=== PATIENT | male | born 1955 | race Caucasian/White ===

== ENCOUNTER → 2016-04-01 | Outpatient (CLI) | payer BC ==
--- NOTE | 2016-04-01 08:43 | RAD ---
EXAM DESCRIPTION: XR SHOULDER 2 OR MORE VIEWS CLINICAL HISTORY: SHOULDER PAIN COMPARISON: None Available. TECHNIQUE: Two views. FINDINGS: There is good internal and external rotation. There is no fracture or bone lesion. There are no significant degenerative changes observed. IMPRESSION: Normalleft shoulder Electronically signed by: Shakeel Ward MD 04/01/2016 08:41
== END ==
LOC: RAD 07:41
PROVIDERS: ATTEND Orthopaedic Surgery
DX: M25.512 Pain in left shoulder (principal)

== ENCOUNTER → 2016-11-02 | Outpatient (CLI) | payer BC ==
--- NOTE | 2016-11-03 13:27 | MRI ---
Study: MRI of the Left Shoulder. 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 Comparison: Radiographs April 01, 2016. FINDINGS: Mild AC joint osteoarthritis. Mild type III acromion with mild lateral downsloping. Trace subacromial/subdeltoid bursal fluid. Supraspinatus and infraspinatus tendinosis with a focal high grade interstitial tear at the mid supraspinatus tendon insertion measuring 6 mm AP by 5 mm transverse and involving 75% of expected tendon thickness. In addition there is low-grade bursal surface tearing of the mid to posterior infraspinatus critical zone. No full-thickness tear or tendon retraction. Subscapularis tendinosis and attenuation with intermediate grade articular tearing superiorly noted. Teres minor tendon intact. Rotator cuff musculature normal without atrophy, fatty infiltration, or intramuscular edema. Long head biceps tendon intact. Circumferential labral truncation noted. Free edge and undersurface tearing noted throughout the superior labrum. Minimal glenohumeral joint osteoarthritis. IMPRESSION: Supraspinatus and infraspinatus tendinosis with a focal high-grade interstitial tear of the mid supraspinatus tendon insertion. Additional low-grade bursal surface tearing of the critical zone of the infraspinatus tendon noted. Subscapularis tendinosis and attenuation with intermediate grade articular tearing superiorly. Circumferential labral truncation with free edge and undersurface tearing throughout the superior labrum. Minimal glenohumeral joint osteoarthritis. Mild AC joint osteoarthritis. Electronically signed by: Hector Sawyer MD 11/03/2016 1:26 PM CDT
== END ==
LOC: MRI 14:00
PROVIDERS: ATTEND Orthopaedic Surgery
DX: M75.112 Incomplete rotator cuff tear or rupture of left shoulder, not specified as traumatic (principal); M19.012 Primary osteoarthritis, left shoulder

== ENCOUNTER → 2016-11-11 | Outpatient (CLI) | payer BC | END | disposition home or self-care (01) | LOC: GMAB 10:08 | PROVIDERS: ATTEND Family Medicine | DX: Z00.01 Encounter for general adult medical examination with abnormal findings (principal) ==

== ENCOUNTER → 2017-01-11 | Outpatient (CLI) | payer BC | END | disposition home or self-care (01) | LOC: GMAB 15:09 | PROVIDERS: ATTEND Family Medicine | DX: E29.9 Testicular dysfunction, unspecified (principal) ==

== ENCOUNTER → 2017-11-21 | Outpatient (CLI) | payer BC | LOC: GMAE 11:40 | PROVIDERS: ATTEND Family Medicine | DX: Z00.01 Encounter for general adult medical examination with abnormal findings (principal) ==

== ENCOUNTER 2018-07-29 20:01 | Emergency (ER) | payer BC, OTHER ==
[2018-07-29 20:25] VITALS: TEMP 97.3; O2SAT 98
[2018-07-29] MEDS ORDERED: KETOROLAC TROMETHAMINE INJ 60 MG/2 ML VIAL IM ONE (20:25)
[2018-07-29] MEDS ORDERED: CYCLOBENZAPRINE HCL 10 MG TAB PO ONE (20:25)
[2018-07-29] MEDS ORDERED: DOXYCYCLINE HYCLATE CAP 100 MG CAP PO ONE (20:27)
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
[2018-07-29 20:45] VITALS: BP 147/85
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
== END 2018-07-29 21:03 | disposition home or self-care (01) ==
LOC: ER 20:01
DX: M54.41 Lumbago with sciatica, right side (principal); N45.1 Epididymitis; K21.9 Gastro-esophageal reflux disease without esophagitis; I10 Essential (primary) hypertension; I25.10 Atherosclerotic heart disease of native coronary artery without angina pectoris; Z85.51 Personal history of malignant neoplasm of bladder; Z79.899 Other long term (current) drug therapy; Z88.1 Allergy status to other antibiotic agents
CPT/HCPCS: 72100; J1885

== ENCOUNTER → 2018-08-03 | Outpatient (CLI) | payer BC | LOC: LAB.O 08:53 | PROVIDERS: ATTEND Urology | DX: R97.20 Elevated prostate specific antigen [PSA] (principal) ==

== ENCOUNTER 2018-10-06 03:30 | Emergency (ER) | payer BC ==
--- NOTE | 2018-10-06 03:49 | ED.PDOC ---
History of Present Illness - General Chief Complaint: Fever Stated Complaint: fever and chillsx 2 hrs Time Seen by Provider: 10/06/18 03:44 Source: patient Exam Limitations: no limitations - History of Present Illness Initial Comments: patient comes in tonight with sudden onset this evening of chills and increased temp to 99 prior to fever that was measured here on arrival. Patient states he is a little bit of a sore throat and some nausea but no emesis and no diarrhea. He's had no cough or cold symptoms. He denies any dysuria. Patient states he just thought he should come in because of chills were so severe. Patient has a history of bladder cancer, history of coronary artery disease that did not require stents or intervention , hypertension, history of PVCs. 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 Denies: eye pain, ear pain, nose congestion Respiratory: States: no symptoms reported. Denies: cough, short of breath, wheezing Cardiology: States: no symptoms reported. Denies: chest pain Gastrointestinal/Abdominal: States: nausea. Denies: abdominal pain, vomiting Genitourinary: States: no symptoms reported Past Medical History (General) - Patient Medical History Hx Seizures: No Hx Stroke: No Hx Dementia: No Hx Asthma: No Hx of COPD: No Hx Cardiac Disorders: Yes - has blockage, PVCs Hx Congestive Heart Failure: No Hx Pacemaker: No Hx Hypertension: Yes Hx Thyroid Disease: No Hx Diabetes: No Hx Gastroesophageal Reflux: Yes Hx Renal Disease: No Hx Cancer: Yes - bladder Hx of HIV: No Hx Hepatitis C: No Hx MRSA: No - Vaccination History Hx Tetanus, Diphtheria Vaccination: No Hx Influenza Vaccination: Yes Hx Pneumococcal Vaccination: Yes - Social History Hx Tobacco Use: No Hx Alcohol Use: No Hx Substance Use: No Hx Substance Use Treatment: No Hx Depression: No Hx Physical Abuse: No Hx Emotional Abuse: No Hx Suspected Abuse: No - Female History Patient : No - Triage Comment ED Triage Comment: Patient states he started having chills approximately 2 hrs ago and came to ED. Family Medical History - Family History Father Living Status: Cause of : iddm Hx Family Congestive Heart Failure: Yes Hx Family Hypertension: Yes Hx Cardiac Disease: Yes Physical Exam - Physical Exam General Appearance: Alert, Comfortable, No apparent distress Eye Exam: bilateral normal ENT Exam: normal ENT inspection, hearing grossly normal, TMs normal, pharynx normal Neck: non-tender, full range of motion, supple, normal inspection Respiratory: chest non-tender, lungs clear, normal breath sounds, no respiratory distress Cardiovascular/Chest: normal peripheral pulses, regular rate, rhythm, no edema, no murmur Gastrointestinal/Abdominal: normal bowel sounds, non tender, soft Neurologic: alert, oriented x 3 Progress - Results/Orders Results/Orders: 10/06/18 04:15 STREP A SCREEN CULTURE Stat Laboratory Results WBC 10.0 K/mm3 (4.8-10.8) 10/06/18 03:45 RBC 5.13 M/mm3 (4.70-6.10) 10/06/18 03:45 Hgb 15.3 gm/dL (14.0-18.0) 10/06/18 03:45 Hct 44.6 % (42.0-52.0) 10/06/18 03:45 MCV 86.9 fl (80.0-94.0) 10/06/18 03:45 MCH 29.7 pg (27.0-31.0) 10/06/18 03:45 MCHC 34.2 g/dL (33.0-37.0) 10/06/18 03:45 RDW 12.9 % (11.5-14.5) 10/06/18 03:45 Plt Count 189 K/mm3 (130-400) 10/06/18 03:45 MPV 6.5 fl (7.40-10.4) L 10/06/18 03:45 Absolute Neuts (auto) 8.60 K/uL (1.8-6.8) H 10/06/18 03:45 Absolute Lymphs (auto) 0.80 K/uL (1.0-3.4) L 10/06/18 03:45 Absolute Monos (auto) 0.40 K/uL (0.2-0.8) 10/06/18 03:45 Absolute Eos (auto) 0.10 K/uL (0.0-0.4) 10/06/18 03:45 Absolute Basos (auto) 0.00 K/uL (0.0-0.1) 10/06/18 03:45 Neutrophils % 86.2 % (42.0-78.0) H 10/06/18 03:45 Lymphocytes % 7.9 % (20.0-50.0) L 10/06/18 03:45 Monocytes % 4.5 % (2.0-9.0) 10/06/18 03:45 Eosinophils % 1.0 % (1.0-5.0) 10/06/18 03:45 Basophils % 0.4 % (0.0-2.0) 10/06/18 03:45 Urine Color Yellow (Yellow) 10/06/18 04:01 Urine Appearance Clear (Clear) 10/06/18 04:01 Urine pH 5.5 (4.5-7.8) 10/06/18 04:01 Ur Specific [place] 1.025 (1.005-1.030) 10/06/18 04:01 Urine Protein Negative mg/dL 10/06/18 04:01 Urine Glucose (UA) Negative mg/dL (Negative) 10/06/18 04:01 Urine Ketones Negative mg/dL (NEGATIVE) 10/06/18 04:01 Urine Blood Negative (Negative) 10/06/18 04:01 Urine Nitrite Negative 10/06/18 04:01 Urine Bilirubin Negative (NEGATIVE) 10/06/18 04:01 Urine Urobilinogen 0.2 mg/dL (0.2-1.0) 10/06/18 04:01 Ur Leukocyte Esterase Negative (Negative) 10/06/18 04:01 Urine RBC 0 /hpf 10/06/18 04:01 Urine WBC 0 /hpf 10/06/18 04:01 Ur Epithelial Cells 0 /hpf 10/06/18 04:01 Urine Bacteria 0 10/06/18 04:01 Group A Strep Rapid Negative (NEGATIVE) 10/06/18 04:15 Departure - Departure Clinical Impression: Viral syndrome Disposition: Discharge to Home or Self Care Condition: Good Departure Forms: ED Discharge - Pt. Copy, Patient Portal Self Enrollment Referrals: JEFFRY BARBER MD [Primary Care Provider] - 1-2 Weeks Home Medications: Ambulatory Orders Escitalopram Oxalate [Lexapro] 20 mg PO DAILY 04/07/14 Metoprolol Succinate [Toprol XL] 25 mg PO DAILY 04/07/14 Pantoprazole Tablet [Protonix] 40 mg PO DAILY 04/07/14 Valsartan-Hydrochlorothiazide [Diovan Hct 320-12.5 mg] 1 tab PO DAILY 04/07/14 Cyclobenzaprine HCl [Flexeril] 10 mg PO TID #15 tab 07/29/18 Doxycycline (Monohydrate) [Doxycycline] 100 mg PO BID #14 tab 07/29/18 Additional Instructions: alternate tylenol and ibuprofen for fever, increase po fluids. Return to ER for intractable emesis, severe pain
[2018-10-06 03:51] VITALS: TEMP 101.2; O2SAT 96
[2018-10-06 04:48] VITALS: BP 106/78
== END 2018-10-06 04:48 | disposition home or self-care (01) ==
LOC: ER 03:30
DX: B34.9 Viral infection, unspecified (principal); I25.10 Atherosclerotic heart disease of native coronary artery without angina pectoris; I10 Essential (primary) hypertension; K21.9 Gastro-esophageal reflux disease without esophagitis; Z85.51 Personal history of malignant neoplasm of bladder

== ENCOUNTER → 2019-02-04 | Outpatient (CLI) | payer BC | LOC: GMAE 10:51 | PROVIDERS: ATTEND Family Medicine | DX: Z00.00 Encounter for general adult medical examination without abnormal findings (principal) ==

== ENCOUNTER → 2020-01-28 | Outpatient (CLI) | payer BC | LOC: GMAE 11:01 | PROVIDERS: ATTEND Family Medicine | DX: Z12.5 Encounter for screening for malignant neoplasm of prostate (principal); I10 Essential (primary) hypertension; E29.9 Testicular dysfunction, unspecified | CPT/HCPCS: 84403; 84443; G0103 ==